=== PATIENT | female | born 1985 | race Caucasian/White ===

== ENCOUNTER 2024-07-08 23:16 | Inpatient (IN) ==
[2024-07-09 00:16] LABS: Basophils # (auto) 0.03 K/uL (0.00-0.20); Basophils % (auto) 0.3 %; Eosinophils # (auto) 0.04 K/uL (0.00-0.50); Eosinophils % (auto) 0.4 %; Hematocrit (blood only) 34.5 % (37.0-47.0); Hemoglobin 12.2 g/dl (12.0-16.0); Immature Granulocytes # (auto) 0.02 K/uL (0.01-0.20); Immature Granulocytes % (auto) 0.2 %; Lymphocytes % (auto) 31.5 %; Mean Corpuscular Hemoglobin 31.9 pg (25.0-34.0); Mean Corpuscular Hgb Conc 35.4 g/dL (32.0-36.0); Mean Corpuscular Volume 90.1 fL (80.0-100.0); Mean Platelet Volume 9.7 fL (9.4-12.4); Monocytes # (auto) 0.68 K/uL (0.11-0.59); Monocytes % (auto) 7.6 %; Neutrophils # (auto) 5.33 K/uL (1.40-6.50); Platelet Count 259 K/uL (130-400); RDW Coefficient of Variation 12.1 % (11.5-14.5); RDW Standard Deviation 39.4 fL (36.4-46.3); Red Blood Count 3.83 M/uL (4.20-5.40)
[2024-07-09 00:26] LABS: Pregnancy Test, Urine Negative (Negative)
[2024-07-09 00:37] LABS: Appearance Urine Cloudy (Clear); Bacteria Urine Automated None Seen (None Seen); Bilirubin Urine 1+ (Negative); Blood Urine Negative (Negative); Calcium Oxalate Crystals Urine Present (None Prsent); Color Urine Dark Yellow; Glucose Urine UA Negative (Negative); Ketones Urine 1+ (Negative); Leukocyte Esterase Urine Trace (Negative); Mucus Urine Present (None Prsent); Nitrite Urine Negative (Negative); Protein Urine 1+ (Negative); RBC Urine Automated 0-2 /hpf (0-2); Specific Gravity Urine 1.029 (1.000-1.030); Urobilinogen Urine Negative (Negative); WBC Urine Automated 0-5 /hpf (0-5)
[2024-07-09 00:37] LABS: Albumin Globulin Ratio 2.2 (0.9-2); Albumin Level 4.8 gm/dl (3.4-5.0); BUN Creatinine Ratio 21.6 (10-20); Calcium 9.4 mg/dl (8.6-10.3); Creatinine Clr Calc Pharmacy 94.8 ml/min; Globulin 2.2 gm/dl (2.5-4.0); Potassium 3.1 mmol/L (3.5-5.1)
[2024-07-09 00:52] LABS: Thyroid Stimulating Hormone 1.965 uIu/ml (0.300-4.500)
[2024-07-09 01:00] LABS: Acetaminophen < 3 ug/ml (10-30); Salicylate < 3.0 mg/dl (3.0-30)
[2024-07-09 01:05] LABS: Amphetamines+Metham, Urine Neg (Neg); Barbiturates, Urine Neg (Neg); Benzodiazepine, Urine Neg (Neg); Cocaine, Urine Neg (Neg); Fentanyl, Urine Neg (Neg); MDMA (Ecstacy), Urine Pos (Neg); Marijuana, Urine Neg (Neg); Methadone, Urine Neg (Neg); Opiate, Urine Neg (Neg); Phencyclidine, Urine Neg (Neg)
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
[2024-07-09] MEDS: LORazepam 1 MG TAB PO STA (05:49)
--- NOTE | 2024-07-09 08:09 | Emergency Department Note ---
ED Visit Note This patient was signed to me by Dr. Correa at shift change. The patient has been paranoid and not sleeping she was given Ativan and was sleeping. She has been medically cleared and 3 S. is going to come evaluate her when she wakes up. The patient did sleep for several hours in the ER 3 S. did come and evaluate the patient and are going to admit her for further inpatient treatment and evaluation .
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
--- OUTSIDE RECORDS SUMMARY | 2024-07-09 08:57 | External Medical Summary | Continuity of Care Document ---
Author Name Unknown Organization [place] [address] TALI LUNA Address [address] [facility] [facility] [address] [place] [phone] Care Team Providers Care Senior Storage Administrator Name Role Phone Evelyn Huff Primary Care Physician [phone] Encounter [facility] [id number] Date(s): 05/01/24 - 05/01/24 [place] [address] T[address] [facility] Obstetrics and Gynecology [address] [facility] [address] [place] [phone] Encounter Diagnosis Premenstrual symptom(Discharge Diagnosis) - 05/01/24 Dysmenorrhea(Discharge Diagnosis) - 05/01/24 POP-Q stage 2 rectocele(Discharge Diagnosis) - 05/01/24 POP-Q stage 2 cystocele(Discharge Diagnosis) - 05/01/24 Discharge Disposition: Home or Self Care Attending Physician: MD Cervantes John J Allergies, Adverse Reactions, Alerts No Known Allergies Immunizations Given and Recorded Vaccine Date Status Refusal Reason tetanus/diphtheria/pertuss, acel (Tdap) 1 05/06/20 Given influenza virus vaccine, inactivated 2 05/06/20 Gi andrew 1Early/Late Reason: Early/Late Reason: Other : BUSY CLINIC, LATE TO CHART 2Early/Late Reason: Early/Late Reason: Other : BUSY CLINIC, LATE TO CHART Medications hydrOXYzine hydrochloride 10 mg oral tablet Start: 03/17/24 11:01:00 AM EDT, See Instructions, Disp# 30 tab, Refills: 4, Take 1-2 tablets up to 4 times daily as needed for anxiety., PRN: as needed for anxiety, Pharmacy: [facility] #[id number] Start Date: 03/17/24 Status: Ordered Motrin Start: 06/17/20 11:31:00 AM EDT, 600 mg =, PO, q6h, PRN: menstrual pain Start Date: 06/17/20 Status: Ordered [place]-3 oral capsule Start: 04/18/20 2:09:00 PM EDT Start Date: 04/18/20 Status: Ordered Tylenol 325 mg oral tablet Start: 06/17/20 11:31:00 AM EDT, 2 tab, PO, q4h, PRN: pain - mild Start Date: 06/17/20 Status: Ordered Vital-D Start: 06/03/20 10:07:00 AM EDT Start Date: 06/03/20 Status: Ordered Mental Status 05/01/24 Barriers to Learning one year None evide nt Mandatory Health Literacy Documentation Yes Health Literacy Communication Barriers N ever Primary Language Japanese Problem List Condition Confirmation Course Effective Dates Status H ealth Status Informant Allergic rhinitis Confirmed Active Anxiety 1 Confirmed 04/29/20 Active Asthma Confirmed Active Family history of hemochromatosis Confirmed 07/07/19 Active Intrauterine growth restriction affecting antepartum care of mother in third trimester Confirmed Active Generalized anxiety disorder Confirmed Active Gestational diabetes Confirmed Active Gestational diabetes mellitus, class A1 Confirmed Active Papule of skin Confirmed Active Encounter for wellness examination in adult Confirmed Active Positive testing for group B Streptococcus Confirmed Active Twin Confirmed Active 1Problem added by Discern Expert Diagnosis Diagnosis Type Effective Dates Health Status Clinical Service Informant Dysmenorrhea Discharge Diagnosis 05/01/24 Non-Specified POP-Q stage 2 rectocele Discharge Diagnosis 05/01/24 Non-Specified POP-Q stage 2 cystocele Discharge Diagnosis 05/01/24 Non-Specified Premenstrual symptom Discharge Diagnosis 05/01/24 Non-Specified Procedures Procedure Date Related Diagnosis Body Site Status Reconstruction of ligament of knee joint 2018 Completed Vital Signs Most recent to oldest [Reference Range]: 1 Patient Weight 67.5 kg (05/01/24 1:32 PM) Blood Pressure 133/78mmHg (05/01/24 1:32 PM) Cuff Pulse Pressure 55 mmHg (05/01/24 1:32 PM) BP Location # 1 Left Arm (05/01/24 1:32 PM) Social History Social History Type Response Smoking Status Never smoked cigaret thuy Sex Female Sex Representation Female (finding) Patient Care team information Care Team Personnel Name: JAYA Huff Soyoung Position: Nurse Pract - Family Med Member Role: Primary Care Provider Address: [address] [place] [address] [place] [id number] Name: Yolanda Hanna Position: HIS Supervisor_P Member Role: HIS Lifetime Care Team Related Persons Name: DIANA GALVIN Name: KAILYN KHALIL Name: KAILYN KHALIL Name: DAYAMI KHALIL
--- OUTSIDE RECORDS SUMMARY | 2024-07-09 08:57 | External Medical Summary | Continuity of Care Document ---
Author Name Unknown Organization [facility] [address] [facility] Address [address] [facility] [place] [id number] Care Team Providers Care Produce Inspector Name Role Phone Evelyn Huff Primary Care Physician [phone] Encounter [facility] [id number] Date(s): 03/17/24 - 03/17/24 [facility] [address] [facility] [address] [place] [address] [phone] Encounter Diagnosis Body mass index [BMI] 26.0-26.9, adult(Discharge Diagnosis) - 03/17/24 Encounter for wellness examination in adult(Discharge Diagnosis) - 03/17/24 Generalized anxiety disorder(Discharge Diagnosis) - 03/17/24 Discharge Disposition: Home or Self Care Attending Physician: CHRISTINA Berman Madeline Allergies, Adverse Reactions, Alerts No Known Allergies Assessment and Plan Extracted from: Title:Office Visit Note Author:CHRISTINA Berman, Sebastián sargent Date:03/17/24 1.Encounter for wellness e xamination in adult Routine. Patient presents to the clinic today for well adult examination. BMP and lipid profile ordered today. Patient is up-to-date on cervical cancer screening. She follows with gynecology.Discussed exercise and eating a healthy diet. Follow-up in the clinic in 1 year for next preventative healthcare examination, or sooner if needed. 2.Generalized anxiety disorder Uncontrolled. Patient endorses increased anxiety recently due togrief. Sheis requesting a refill of hydroxyzine, which has been sent to the patient's pharmacy. She does feel thather symptoms areimproved when she takes the hydroxyzine periodically and with following with her therapist. Patient declines beginning daily medication at this time. Continue with current treatment regimen. The patient is understanding and in agreement with the plan. Disclaimer: This note was completed in part using [employer] Voice Recognition Software. Grammatical errors and word substitutions are possible. Ifthere areany concerns regarding the content of this dictation, please contact the provider for clarification. Immunizations Given and Recorded Vaccine Date Status [...] anxiety., PRN: as needed for anxiety, [facility]acy: [facility] #[id number] Start Date: 03/17/24 Status: Ordered Motrin Start: 06/17/20 11:31:00 AM EDT, 600 mg =, PO, q6h, PRN: menstrual pain Start Date: 06/17/20 Status: Ordered [place]br[place]-3 oral capsule Start: 04/18/20 2:09:00 PM EDT Start Date: 04/18/20 Status: Ordered Tylenol 325 mg oral tablet Start: 06/17/20 11:31:00 AM EDT, 2 tab, PO, q4h, PRN: pain - mild Start Date: 06/17/20 Status: Ordered Vital-D Start: 06/03/20 10:07:00 AM EDT Start Date: 06/03/20 Status: Ordered Mental Status 03/17/24 Barriers to Learning one year None evide nt Mandatory Health Literacy Documentation Yes Health Literacy Communication Barriers N ever Primary Language [place] Islander Problem List Condition Confirmation Course Effective Dates [...] Effective Dates Health Status Clinical Service Informant Body mass index [BMI] 26.0-26.9, adult Discharge Diagnosis 03/17/24 Non-Specified Generalized anxiety disorder Discharge Diagnosis 03/17/24 Non-Specified Encounter for wellness examination in adult Discharge Diagnosis 03/17/24 Non-Specified Procedures Procedure Date Related Diagnosis Body Site Status Reconstruction of ligament of knee joint 2018 Completed Vital Signs Most recent to oldest [Reference Range]: 1 Height 161 cm (03/17/24 10:25 AM) Patient Weight 67.6 kg (03/17/24 10:25 AM) Body Mass Index 26.08 kg/m2 (03/17/24 10:25 AM) Temperature [36.5-37.9 DegC] 36.8 DegC (03/17/24 10:25 AM) Heart Rate 77 bpm (03/17/24 10:25 AM) Respiratory Rate 16 br/min (03/17/24 10:25 AM) Blood Pressure 119/87mmHg (03/17/24 10:25 AM) Cuff Pulse Pressure 32 mmHg (03/17/24 10:25 AM) BP Location # 1 Left Arm (03/17/24 10:25 AM) Social History Social History Type Response Smoking Status Never smoked cigaret thuy Sex Female FCM Outpt Note * CHRISTINA Berman, Ivette: PERFORM Event Display: FCM Outpt Note Authored Date: Chief Complaint annual exam History of Present Illness Enoch is a 39-year-old female with a past medical history of HAI, asthma, gestationaldiabetes, who presents to the clinic today for awell adult examination. In terms of the patient's anxiety, wildee rachael has been dealing with a lot of grief overthe past 2 years. She feels that her anxiety has spiked up. The patientexplains that her [id number] passed awaylast fall. This has been difficult for the patientand her family. She states that the hydroxyzine helps when she takes it as needed. She does not feel that she needs to start a daily medication. She ran out of the hydroxyzine and needs a refill. She is also following with a therapist a few times a month through [facility] and reports that this has been helpful. Health Maintenance/Social Hx: BP: 119/87 BMI:26.08 Lipids: Due AUTOMOTIVE TECHNICIAN/PAP:02/01/23,patient reports having a follow-up appointment coming up with gynecology. She does reporta history of a cystocele. Patient's last menstrual period was 2 weeks ago. She has been having some cramping. Tobacco/ETOH/substances: Denies tobacco or illicit substances. Drinks alcohol on occasion. Diet: whole food, mostly plant based Exercise: walking daily, meditation, zumba1-2times a week Dentist: Yes, appointment in April Eye exam: Yes, exam on Saturday Mood:PHQ-2 of 0 Home life:Lives with and 3 children. Twins age 3.5 years (boy and girl), and 9-lypa-onndii Review of Systems See HPI for pertinent ROS. All other systems have beenreviewed and are negative. Physical Exam Vitals & Measurements T:36.8C HR:77(Monitored) RR:16 BP:119/87 HT:161cm WT:67.6kg WT:67.600kg(Dosing) BMI:26.08 PHQ2 Data(Data Documented on:03/17/2024 10:23) Emotional health assessment NEGATIVE General: Well-developed, well-nourished patient, in no acute distress, pleasant and normal affect, intact memory. Eyes: No scleral injection or discharge. ENT: Moist mucous membranes. Clear oropharynx. No exudate. No lesions. Tympanic membranesare clear bilaterally. Neck is supple without lymphadenopathy or thyromegaly. Lungs: Clear to auscultation bilaterally with good effort. Cardiac: Regular rate and rhythm. No murmurs. No extremity edema. Abdomen: Soft, nontender, and nondistended. No masses. No hepatosplenomegaly. Neurologic: Grossly intact cranial nerves and 2+ patellar tendon reflexes bilaterally. Assessment/Plan 1.Encounter for wellness examination in adult Routine. Patient presents to the clinic today for well adult examination. BMP and lipid profileordered today. Patient is up-to-date on cervical cancer screening. She follows with gynecology.Discussed exercise and eating a healthy diet. Follow-up in the clinic in 1 year for next preventative healthcare examination, or sooner if needed. 2.Generalized anxiety disorder Uncontrolled. Patient endorses increased anxiety recently due togrief. Sheis requesting arefill of hydroxyzine, which has been sent to the patient's pharmacy. She does feel thather symptoms areimproved when she takes the hydroxyzine periodically and with following with her therapist. Patient declines beginning daily medication at this time. Continue with current treatment regimen. The patient is understanding and in agreement with the plan. Disclaimer: This note was completed in part using [employer] Voice Recognition Software. Grammatical errors and word substitutions are possible. Ifthere areany concerns regarding the content of this dictation, please contact the provider for clarification. Problem List/Past Medical History Ongoing Allergic rhinitis Anxiety Asthma Encounter for wellness examination in adult Family history of hemochromatosis Generalized anxiety disorder Gestational diabetes Gestational diabetes mellitus, class A1 Intrauterine growth restriction affecting antepartum care of mother in third trimester Papule of skin Positive testing for group B Streptococcus Twin Resolved Dichorionic diamniotic twin Procedure/Surgical History Reconstruction of ligament of knee joint| Service Date: 2018 Medications acetaminophen(Tylenol 325 mg oral tablet), 650 mg= 2 tab, PO, q4h, PRN hydrOXYzine(hydrOXYzine hydrochloride 10 mg oral tablet), See Instructions, PRN, 4 refills ibuprofen(Motrin), 600 mg= 1 tab, PO, q6h, PRN multivitamin with minerals(Vital-D) omega-3 polyunsaturated fatty acids(Mcbrides-3 oral capsule) Allergies NKA No Known Medication Allergies Social History Smoking Status Never smoked cigarettes Alcohol - No Risk Type:Wine Frequency:1-2 times per week Employment/School Previous employment/school:Pre-schoolhigh school math tutor Exercise - Regular exercise Home/Environment Lives with:Children, Spouse - Comments: 6 year-old son and 6 month-old twins (girl/boy) Other Name: changes litter box - Comments: HAD CHICKEN POX VACCINE Sexual - Low Risk Substance Abuse - Denies Substance Abuse Tobacco - Denies Tobacco Use Family History Breast cancer: Mother. Depression: Mother, Father and MGF. Heart disease: Father. Hypertension: Father and MGF. Thyroid cancer: Unknown. Health Status Family Member(s) Immunizations Vaccine Date Status tetanus/diphtheria/pertuss, acel (Tdap) 05/06/2020 Given Comments : Early/Late Reason: Other : BUSY CLINIC, LATE TO CHART influenza virus vaccine, inactivated 05/06/2020 Given Comments : Early/Late Reason: Other : BUSY CLINIC, LATE TO CHART Recommendations Health Maintenance Pending(in the next year) Due Adult Influenza Vaccine due03/01/24and every 1year Adult COVID-19 Vaccination due03/17/24Unknown Frequency Adult Folic Acid Supplementation due03/17/24and every 3year Lipid Screening due03/17/24Unknown Frequency Pneumococcal Vaccine Adults and Adolescents with Chronic Illness due03/17/24One-time only Satisfied(in the past 1 year) Satisfied Adult Social Determinants of Health Screening on03/17/24.Satisfied by [facility] Body Mass Index on03/17/24.Satisfied by [facility] Electronic Signature on File Electronically Reviewed/Signed by: Ivette Berman PA-C Author Signature Dt/Tm:03/17/2024 11:16 AM Department of Family Medicine Electronically Reviewed/Signed by: Travon Delgadillo MD Cosigner Signature Dt/Tm: 03/17/2024 11:17AM Department of Family Medicine Family and Coummunity Medicine Patient Care team information Care Team Personnel Name: JAYA Huff Soyoung Position: Nurse Pract - Family Med Member Role: Primary Care Provider Address: Address: [address] [place] [address] [place] [id number] Name: Yolanda Hanna Position: HIS Supervisor_P Member Role: HIS Lifetime Care Team Related Persons Name: DIANA GALVIN Address: [address] [place] [id number] Name: KAILYN KHALIL Address: [address] [place], [phone] Name: KAILYN KHALIL Address: [address] [place], [id number] Name: DAYAMI KHALIL Address: [address] [place], [id number]"
[2024-07-09] MEDS ORDERED: MAGNESIUM HYDROXIDE SUSP 30 ML UDC PO PRN (14:37)
[2024-07-09] MEDS ORDERED: ALUMINUM/MAGNESIUM SUSP 30 ML UDC PO PRN (14:37)
[2024-07-09] MEDS ORDERED: hydrOXYzine HCl 25 MG TAB PO PRN ×2 (14:37)
[2024-07-09] MEDS ORDERED: BISMUTH SUBSALICYLATE 262 MG CHEW PO PRN (14:37)
[2024-07-09] MEDS ORDERED: LORazepam 1 MG TAB PO PRN (14:42)
[2024-07-09] MEDS: POTASSIUM CHLORIDE CRTAB 20 MEQ TABCR PO STA (15:49)
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
[2024-07-09] MEDS: OLANZapine 5 MG TABLET PO SCH (20:02)
[2024-07-09] MEDS: clonazePAM 1 MG TAB PO SCH (21:15)
[2024-07-09] MEDS: LORazepam 1 MG TAB PO PRN (22:23)
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
[2024-07-10] MEDS: clonazePAM 0.5 MG TAB PO SCH (08:25)
[2024-07-10] MEDS: INFLUENZA VACC TS2024-25(6m+)/PF (IIV3) 0.5mL Syr IM ONE (12:04)
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
[2024-07-10] MEDS: OLANZapine 5 MG TABLET PO PRN (15:19)
[2024-07-10] MEDS: SODIUM CHLORIDE 0.65% NA SOLN 45 ML (OCEAN) PRN (20:11)
[2024-07-10] MEDS: OLANZapine 10 MG TAB PO SCH (21:41)
[2024-07-11 07:34] LABS: Estimated Average Glucose 88 mg/dl; Hemoglobin A1C 4.7 % (4.5-5.6)
[2024-07-11 07:51] LABS: Chol HDL Ratio 3.2 (0-5)
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
[2024-07-11] MEDS: LITHIUM CARBONATE 300 MG TAB PO SCH (20:45)
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
[2024-07-12] MEDS: OLANZapine 20 MG TABLET PO SCH (21:44)
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
[2024-07-13 11:11] LABS: MDA negative; MDEA negative; MDMA (Ecstasy) Urine, Confirm negative
[2024-07-13] MEDS: LITHIUM CARBONATE SLOW REL 300 MG TAB PO SCH (21:28)
[2024-07-14] MEDS: ACETAMINOPHEN 325 MG TAB PO PRN (08:03)
[2024-07-14] MEDS: CHOLECALCIFEROL 10 MCG (400 UNITS) TAB PO SCH (08:50)
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
[2024-07-15] MEDS: clonazePAM 1 MG TAB PO SCH (21:38)
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
[2024-07-16] MEDS ORDERED: [UNRECOGNIZED DRUG - OTHER] PO SCH (13:00)
[2024-07-16] MEDS ORDERED: [UNRECOGNIZED DRUG - OTHER] PO SCH (13:00)
[2024-07-16] MEDS ORDERED: [UNRECOGNIZED DRUG - OTHER] PO SCH (13:00)
[2024-07-16] MEDS: [UNRECOGNIZED DRUG - OTHER] PO SCH (13:34)
[2024-07-16] MEDS: [UNRECOGNIZED DRUG - OTHER] PO SCH (13:36)
[2024-07-16] MEDS: [UNRECOGNIZED DRUG - OTHER] PO SCH (13:36)
[2024-07-16] MEDS ORDERED: clonazePAM 0.5 MG TAB PO PRN (15:37)
[2024-07-16] MEDS: clonazePAM 0.5 MG TAB PO SCH (21:37)
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
[2024-07-17] MEDS ORDERED: NON-FORMULARY PATIENT'S OWN MED PO SCH ×3 (09:00)
[2024-07-17] MEDS: [UNRECOGNIZED DRUG - OTHER] PO SCH (09:21)
[2024-07-17] MEDS: [UNRECOGNIZED DRUG - OTHER] PO SCH (09:22)
[2024-07-17] MEDS: [UNRECOGNIZED DRUG - OTHER] PO SCH (09:22)
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
[2024-07-19] MEDS: traZODone HCL 50 MG TAB PO SCH (21:35)
[2024-07-19] MEDS: LORazepam 1 MG TAB PO SCH (21:35)
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
== END 2024-07-21 10:40 | disposition home or self-care (01) | DRG 885 ==
LOC: ED 23:16 → SUATTDRO 07-09 13:30 → 3S 07-09 13:30